=== PATIENT | male | born 1955 | race Caucasian/White ===

== ENCOUNTER 2020-07-16 17:09 | Emergency (ER) | payer OTHER ==
[~2020-07-16] VITALS: Ht 190.5 cm; Wt 125.3 kg
--- NOTE | 2020-07-16 17:19 | NUR ---
PATIENT WALKED BACK FROM TRIAGE WITH CHIEF C/O LEFT LEG PAIN. PATIENT STATES HE FELL ABOUT "7 WEEKS AGO." PATIENT STARTED HAVING PAIN IN HIS LEFT LEG A WEEK LATER, WITH MOST OF THE PAIN FOCUSED IN THE FRONT OF THE LEG. PATIENT HAS BEEN PRESCRIBED STEROIDS BY PCP, PATIENT STATES PAIN WAS RELIEVED BY STEROIDS BY BLOOD SUGAR LEVELS "DOUBLED." PATIENT STOPPED STEROIDS DUE TO INCREASE IN BLOOD SUGAR. PATIENT RECENTLY AT URGENT CARE AND X-RAYS SHOWED NO BROKEN BONES. NADN. DENISE AT BEDSIDE FOR EVALUATION.
[2020-07-16 17:56] LABS: BASOPHILS % (AUTO) 1 % (0-1); EOSINOPHILS % (AUTO) 2 % (1-7); LYMPHOCYTES % (AUTO) 16 % (22-44); MEAN CORPUSCULAR HEMOGLOBIN 30.6 pg (27.5-34.5); MEAN CORPUSCULAR HGB CONC 34.7 g/dL (33.2-36.2); MONOCYTES % (AUTO) 10 % (2-9); NEUTROPHILS % (AUTO) 71 % (42-75); PLATELET COUNT 159 x10^3/uL (130-400); RED BLOOD COUNT 4.79 x10^6/uL (4.38-5.82); RED CELL DISTRIBUTION WIDTH 14.2 % (9.4-14.8)
[2020-07-16 17:57] LABS: MD NO
[2020-07-16 18:08] LABS: ALBUMIN 3.6 g/dL (3.4-5.0); ANION GAP 6 mmol/L (5-15); CALCIUM 9.3 mg/dL (8.5-10.1); CHLORIDE 108 mmol/L (98-107)
--- NOTE | 2020-07-16 18:08 | NUR ---
PATIENT TO IMAGING.
[2020-07-16 18:16] LABS: CREATININE 1.63 mg/dL (0.7-1.3)
--- NOTE | 2020-07-16 18:32 | NUR ---
PATIENT BACK FROM IMAGING, RESTING IN GURNEY, NADN, VSS, SIDE RAILS UP X2, CALL LIGHT WITHIN REACH.
[2020-07-16 19:00] LABS: INTERNATIONAL NORMALIZED RATIO 1.04 (0.93-1.1)
--- NOTE | 2020-07-16 19:09 | NUR ---
PATIENT RESTING IN [facility] WATCHING TV, REQUESTING THIS RN CHECK BLOOD SUGAR, PATIENT STATES "I FEEL LIKE IT'S GETTING LOW." CHECKED PATIENT'S BLOOD SUGAR, IT IS 249. FABIAN GRANADOS, CALL LIGHT WITHIN REACH.
[2020-07-16] MEDS ORDERED: RIVAROXABAN 20 MG TABLET ONE (19:18)
[2020-07-16 19:21] VITALS: BP 142/63
[2020-07-16] MEDS ORDERED: RIVAROXABAN 20 MG TABLET PO ONE (19:30)
--- NOTE | 2020-07-16 19:45 | NUR ---
Patient given discharge instructions and prescription and they have confirmed that they understand the instructions. Patient stable and ambulatory with steady gait and use of cane. All patient belongings gathered and taken with patient.
== END 2020-07-16 19:57 | disposition home or self-care (01) ==
LOC: ED 19:53
DX: I82.432 Acute embolism and thrombosis of left popliteal vein (principal); I82.442 Acute embolism and thrombosis of left tibial vein; N28.9 Disorder of kidney and ureter, unspecified; G89.11 Acute pain due to trauma; E11.9 Type 2 diabetes mellitus without complications
CPT/HCPCS: 36415; 72190; 80048; 82040; 82962; 85025; 85610; 86140; 99285

== ENCOUNTER → 2020-07-26 | Outpatient (CLI) | payer OTHER | END | disposition home or self-care (01) | LOC: RAD 17:28 | PROVIDERS: ATTEND Nurse Practitioner Family | DX: M79.605 Pain in left leg (principal) ==

== ENCOUNTER 2020-07-28 10:17 | Emergency (ER) | payer OTHER ==
[~2020-07-28] VITALS: Ht 190.5 cm; Wt 131.8 kg
[2020-07-28 10:27] VITALS: BP 120/58
== END 2020-07-28 12:32 | disposition home or self-care (01) ==
LOC: ED 10:40
DX: S90.32XA Contusion of left foot, initial encounter (principal); M25.572 Pain in left ankle and joints of left foot; E11.9 Type 2 diabetes mellitus without complications; Z86.718 Personal history of other venous thrombosis and embolism; X58.XXXA Exposure to other specified factors, initial encounter; Y93.89 Activity, other specified; Y92.89 Other specified places as the place of occurrence of the external cause; Y99.8 Other external cause status
CPT/HCPCS: 99284

== ENCOUNTER 2020-07-30 04:18 | Emergency (ER) | payer OTHER ==
[~2020-07-30] VITALS: Ht 190.5 cm; Wt 132.0 kg
--- NOTE | 2020-07-30 04:27 | NUR ---
pt bib remsa to room 18. a&ox4, placed on cr monitor.
[2020-07-30] MEDS ORDERED: GABAPENTIN 300 MG CAPSULE PO ONE (05:00)
[2020-07-30] MEDS ORDERED: HYDROcodone/APAP 5/325 TABLET PO ONE (05:00)
[2020-07-30] MEDS ORDERED: HYDROcodone/APAP 5/325 TABLET ONE (05:01)
[2020-07-30] MEDS ORDERED: GABAPENTIN 300 MG CAPSULE ONE (05:02)
--- NOTE | 2020-07-30 06:03 | NUR ---
Patient resting on stretcher, assisted with urinal voided 250ml clear osman urine, call atkinson within reach, vss, nad will continue to monitor.
[2020-07-30 07:14] VITALS: BP 140/73
== END 2020-07-30 07:17 | disposition home or self-care (01) ==
LOC: ED 05:29
DX: G89.29 Other chronic pain (principal); M25.571 Pain in right ankle and joints of right foot; M25.572 Pain in left ankle and joints of left foot; E11.40 Type 2 diabetes mellitus with diabetic neuropathy, unspecified; Z86.718 Personal history of other venous thrombosis and embolism
CPT/HCPCS: 99283

== ENCOUNTER → 2020-08-31 | Outpatient (CLI) | payer OTHER | END | disposition home or self-care (01) | LOC: RAD 09:51 | PROVIDERS: ATTEND Student in an Organized Health Care Education/Training Program | DX: M16.0 Bilateral primary osteoarthritis of hip (principal); M51.36 Other intervertebral disc degeneration, lumbar region | CPT/HCPCS: 72192 ==

== ENCOUNTER 2020-09-14 14:14 | Outpatient (CLI) | payer OTHER ==
[2020-09-14] MEDS ORDERED: LIDOCAINE 1%, 10ML ONE ×2 (14:56)
== END 2020-09-14 23:59 | disposition home or self-care (01) ==
LOC: RAD 14:14
PROVIDERS: ATTEND Student in an Organized Health Care Education/Training Program
DX: M16.12 Unilateral primary osteoarthritis, left hip (principal); I10 Essential (primary) hypertension; E66.9 Obesity, unspecified; Z68.36 Body mass index [BMI] 36.0-36.9, adult; Z79.4 Long term (current) use of insulin; Z79.01 Long term (current) use of anticoagulants; Z79.890 Hormone replacement therapy; Z79.899 Other long term (current) drug therapy
CPT/HCPCS: 20610; 77002; 87070; 87205; 89051; 89060; J3490

== ENCOUNTER 2020-10-11 01:57 | Inpatient (IN) | payer OTHER, MEDICARE ==
[~2020-10-11] VITALS: Ht 190.5 cm; Wt 115.4 kg
[2020-10-11] MEDS ORDERED: SODIUM CHLORIDE 0.9% 1,000ML IVBOLUS ONE (02:30)
[2020-10-11] MEDS ORDERED: SODIUM CHLORIDE FLUSH 10ML SYR IVF ONE (02:30)
--- NOTE | 2020-10-11 02:30 | NUR ---
REPORT TO UZAIR HO
--- NOTE | 2020-10-11 02:38 | NUR ---
THIS IS A 65M BIB EMS AFTER MULTIPLE SYNCOPAL EPISODES. PT STS HE GETS ALL ANXIOUS AND BLACKS OUT. PER REPORT PT HAD A WITNESSED SYNCOPAL EPISODE WITH EMS. PT HAS HX OF DVT AND WAS TAKING ELIQUIS UNTIL A WEEK AGO WHEN A DOCTOR TOLD HIM THE CLOT IS GONE AND HE COULD STOP TAKING IT. PT CONNECTED TO ALL MONITORING, BILAT PIVS STARTED, AT BEDSIDE.
--- NOTE | 2020-10-11 02:40 | NUR ---
FLUIDS HUNG PER DR BANG AT THIS TIME, LAB AT BEDSIDE FOR DRAW PT TOLERATING WELL. AT BEDSIDE. PT CONNECTED TO ALL MONITORING.
[2020-10-11 02:46] LABS: BASOPHILS % (AUTO) 0 % (0-1); EOSINOPHILS % (AUTO) 1 % (1-7); LYMPHOCYTES % (AUTO) 9 % (22-44); MEAN CORPUSCULAR HEMOGLOBIN 29.4 pg (27.5-34.5); MEAN CORPUSCULAR HGB CONC 32.9 g/dL (33.2-36.2); MONOCYTES % (AUTO) 6 % (2-9); NEUTROPHILS % (AUTO) 83 % (42-75); PLATELET COUNT 139 x10^3/uL (130-400); RED BLOOD COUNT 4.17 x10^6/uL (4.38-5.82); RED CELL DISTRIBUTION WIDTH 16.1 % (9.4-14.8)
[2020-10-11 02:47] LABS: MD NO
[2020-10-11 02:58] LABS: ALANINE AMINOTRANSFERASE 49 U/L (12-78); ALBUMIN 3.2 g/dL (3.4-5.0); ANION GAP 13 mmol/L (5-15); CALCIUM 8.8 mg/dL (8.5-10.1); CHLORIDE 111 mmol/L (98-107); CREATININE 1.67 mg/dL (0.7-1.3)
[2020-10-11 02:59] LABS: INTERNATIONAL NORMALIZED RATIO 1.16 (0.93-1.1); PROTHROMBIN TIME 12.4 Seconds (9.6-11.5)
[2020-10-11 03:08] LABS: ALKALINE PHOSPHATASE 135 U/L (45-117); BILIRUBIN,TOTAL 0.5 mg/dL (0.2-1.0); T4 (THYROXINE) 7.5 mcg/dL (4.5-12.1); TOTAL PROTEIN 6.7 g/dL (6.4-8.2)
--- NOTE | 2020-10-11 03:10 | NUR ---
PT MOVED TO WEIGHTED GURNEY FOR ACCURATE WEIGHT AT THIS TIME. REPOSITIONED TO COMFORT.
[2020-10-11 03:21] LABS: TROPONIN I 0.387 ng/mL (0.000-0.045)
--- NOTE | 2020-10-11 03:30 | NUR ---
PT TO CT AT THIS TIME
[2020-10-11] MEDS ORDERED: HEPARIN 25,000 UNITS/250ML PMX 250 ML IV PRN (04:00)
[2020-10-11] MEDS ORDERED: HEPARIN 5,000 UNITS/ML, 1ML IV ONE (04:00)
[2020-10-11] MEDS ORDERED: ASPIRIN 81 MG TABLET CHEW PO ONE (04:00)
--- NOTE | 2020-10-11 04:01 | NUR ---
HEPARIN DOSE VERIFIED WITH MARK FROM PHARM. PER MARK BOLUS TO BE GIVEN 4,000 UNITS AND INITIAL START RATE OF 1,000UNITS/HR.
[2020-10-11] MEDS ORDERED: HEPARIN 25,000 UNITS/250ML PMX 250 ML ONE (04:07)
[2020-10-11] MEDS ORDERED: HEPARIN 5,000 UNITS/ML, 1ML ONE (04:07)
[2020-10-11] MEDS ORDERED: ASPIRIN 81 MG TABLET CHEW ONE (04:07)
--- NOTE | 2020-10-11 04:21 | NUR ---
HEPARIN STARTED AND VERIFIED WITH SHAWANDA HO.
[2020-10-11] MEDS ORDERED: ALTEPLASE 10 MG in SODIUM CHLORIDE 0.9% 240 ML IV ONE (04:30)
--- NOTE | 2020-10-11 04:32 | NUR ---
DR. MCALLISTER AT BEDSIDE FOR ADMIT AT THIS TIME.
--- NOTE | 2020-10-11 04:39 | NUR ---
PER DR BANG TPA NOT TO BE GIVEN IN ED, CARDIOLOGY WILL GIVE TPA ONCE PT IS UPSTAIRS.
[2020-10-11] MEDS ORDERED: DEXTROSE 4 GM TAB.CHEW PO PRN (05:00)
[2020-10-11] MEDS ORDERED: GLUCAGON 1 MG IM PRN (05:00)
[2020-10-11] MEDS ORDERED: DEXTROSE 50%, 50ML SYRINGE IVPush PRN (05:00)
[2020-10-11] MEDS ORDERED: OMNIPAQUE 350 MG/ML, 100ML BOTTLE ONE (05:08)
--- NOTE | 2020-10-11 05:20 | NUR ---
REPORT CALLED TO SHAHEEN, ALL QUESTIONS ADDRESSED PT READY FOR TRANSFER TO [facility]
[2020-10-11 06:08] VITALS: BP 86/62
[2020-10-11] MEDS: INSULIN LISPRO 100 UNITS/ML, PEN SQ-INSULIN SCH ×4 (07:00→22:26)
[2020-10-11] MEDS ORDERED: FENTANYL PF 100 MCG/2ML ONE ×2 (07:10→07:35)
[2020-10-11] MEDS ORDERED: MIDAZOLAM 1 MG/ML, 2ML ONE ×2 (07:10→07:35)
[2020-10-11] MEDS ORDERED: LIDOCAINE 2%, 20ML ONE (07:26)
[2020-10-11] MEDS ORDERED: DIPHENHYDRAMINE 50 MG/ML, 1ML ONE (07:35)
[2020-10-11] MEDS ORDERED: SODIUM CHLORIDE 0.9% 1,000 ML IV SCH (08:00)
[2020-10-11] MEDS ORDERED: Heparin 1000 units/500 ml 500 ML IV SCH (08:00)
[2020-10-11] MEDS ORDERED: SODIUM CHLORIDE FLUSH 3ML SYRINGE IVF PRN (08:00)
[2020-10-11] MEDS: SODIUM CHLORIDE FLUSH 10ML SYR IVF SCH ×2 (13:12→21:00)
[2020-10-11] MEDS: RIVAROXABAN 15 MG TABLET PO SCH ×2 (13:33→21:11)
[2020-10-11 14:33] LABS: BASOPHILS % (AUTO) 1 % (0-1); EOSINOPHILS % (AUTO) 1 % (1-7); LYMPHOCYTES % (AUTO) 15 % (22-44); MEAN CORPUSCULAR HEMOGLOBIN 29.6 pg (27.5-34.5); MEAN CORPUSCULAR HGB CONC 33.1 g/dL (33.2-36.2); MEAN PLATELET VOLUME 8.8 fL (7.4-10.4); MONOCYTES % (AUTO) 10 % (2-9); NEUTROPHILS % (AUTO) 75 % (42-75); PLATELET COUNT 116 x10^3/uL (130-400); RED BLOOD COUNT 3.81 x10^6/uL (4.38-5.82); RED CELL DISTRIBUTION WIDTH 16.2 % (9.4-14.8)
[2020-10-11 14:35] LABS: MD NO
[2020-10-11 14:39] LABS: FIBRINOGEN 286 mg/dL (200-340)
[2020-10-11] MEDS ORDERED: HYDROcodone/APAP 5/325 TABLET PO PRN (18:30)
[2020-10-11] MEDS: ACETAMINOPHEN 325 MG TABLET PO PRN (21:11)
[2020-10-11 21:17] LABS: BASOPHILS % (AUTO) 1 % (0-1); EOSINOPHILS % (AUTO) 1 % (1-7); LYMPHOCYTES % (AUTO) 14 % (22-44); MEAN CORPUSCULAR HEMOGLOBIN 29.8 pg (27.5-34.5); MEAN CORPUSCULAR HGB CONC 33.8 g/dL (33.2-36.2); MEAN PLATELET VOLUME 9.5 fL (7.4-10.4); MONOCYTES % (AUTO) 8 % (2-9); NEUTROPHILS % (AUTO) 77 % (42-75); PLATELET COUNT 117 x10^3/uL (130-400); RED BLOOD COUNT 3.79 x10^6/uL (4.38-5.82)
[2020-10-11 21:18] LABS: MD NO
[2020-10-11] MEDS ORDERED: INSU100V8 SQ (23:00)
[2020-10-11] MEDS ORDERED: LISI1TAB39 PO (23:00)
[2020-10-11] MEDS ORDERED: ATOR-2 PO (23:00)
[2020-10-11] MEDS ORDERED: RIVA20TA PO (23:00)
[2020-10-11] MEDS ORDERED: LEVO75TA5 PO (23:00)
[2020-10-11] MEDS ORDERED: INSU100V5 SQ-INSULIN (23:00)
[2020-10-11] MEDS ORDERED: GABA300C PO (23:00)
[2020-10-11] MEDS ORDERED: TADALAFIL (23:00)
[2020-10-11] MEDS ORDERED: INSU100V11 SQ (23:00)
[2020-10-11] MEDS ORDERED: IBUP-1223 PO (23:00)
[2020-10-12 02:43] LABS: BASOPHILS % (AUTO) 1 % (0-1); EOSINOPHILS % (AUTO) 2 % (1-7); LYMPHOCYTES % (AUTO) 18 % (22-44); MEAN CORPUSCULAR HEMOGLOBIN 29.8 pg (27.5-34.5); MEAN CORPUSCULAR HGB CONC 33.7 g/dL (33.2-36.2); MEAN PLATELET VOLUME 9.2 fL (7.4-10.4); MONOCYTES % (AUTO) 8 % (2-9); NEUTROPHILS % (AUTO) 71 % (42-75); PLATELET COUNT 100 x10^3/uL (130-400); RED BLOOD COUNT 3.83 x10^6/uL (4.38-5.82); RED CELL DISTRIBUTION WIDTH 16.2 % (9.4-14.8)
[2020-10-12 02:44] LABS: MD NO
[2020-10-12 02:48] LABS: ANION GAP 7 mmol/L (5-15); CALCIUM 8.7 mg/dL (8.5-10.1); CHLORIDE 114 mmol/L (98-107); CREATININE 1.03 mg/dL (0.7-1.3)
[2020-10-12 02:52] LABS: FIBRINOGEN 387 mg/dL (200-340)
[2020-10-12] MEDS: ACETAMINOPHEN 325 MG TABLET PO PRN ×2 (03:17→08:54)
[2020-10-12] MEDS: RIVAROXABAN 15 MG TABLET PO SCH (08:54)
[2020-10-12] MEDS: INSULIN LISPRO 100 UNITS/ML, PEN SQ-INSULIN SCH ×3 (08:54→16:18)
[2020-10-12] MEDS: SODIUM CHLORIDE FLUSH 10ML SYR IVF SCH (08:55)
[2020-10-12] MEDS ORDERED: RIVA15TA PO (14:44)
[2020-10-12] MEDS ORDERED: RIVA20TA PO (14:44)
[2020-11-01] MEDS ORDERED: RIVAROXABAN 20 MG TABLET PO SCH (09:00)
== END 2020-10-12 16:43 | disposition home or self-care (01) | DRG 175 ==
LOC: ED 05:06 → EDIP 05:08 → CCU 05:31 → DCLOUNGE 10-12 16:19
PROVIDERS: ADMIT Internal Medicine; ATTEND Internal Medicine
PROC: 02HR33Z Insertion of Infusion Device into Left Pulmonary Artery, Percutaneous Approach (ICD-10-PCS; principal; 2020-10-11)
PROC: 02HQ33Z Insertion of Infusion Device into Right Pulmonary Artery, Percutaneous Approach (ICD-10-PCS; 2020-10-11)
PROC: 3E06317 Introduction of Other Thrombolytic into Central Artery, Percutaneous Approach (ICD-10-PCS; 2020-10-11)
DX: I26.09 Other pulmonary embolism with acute cor pulmonale (principal); J96.01 Acute respiratory failure with hypoxia; R57.0 Cardiogenic shock; D68.69 Other thrombophilia; I82.492 Acute embolism and thrombosis of other specified deep vein of left lower extremity; Z20.822 Contact with and (suspected) exposure to COVID-19; D63.8 Anemia in other chronic diseases classified elsewhere; E03.9 Hypothyroidism, unspecified; Z96.649 Presence of unspecified artificial hip joint; G90.8 Other disorders of autonomic nervous system; E11.9 Type 2 diabetes mellitus without complications; E78.5 Hyperlipidemia, unspecified; I10 Essential (primary) hypertension; I25.10 Atherosclerotic heart disease of native coronary artery without angina pectoris; I27.20 Pulmonary hypertension, unspecified; M16.10 Unilateral primary osteoarthritis, unspecified hip; S80.211A Abrasion, right knee, initial encounter; Z79.4 Long term (current) use of insulin; Z86.718 Personal history of other venous thrombosis and embolism; Z79.899 Other long term (current) drug therapy
CPT/HCPCS: 36415; 37211; 96360; 96361; 99285; C8929; J3490; 70450; 71275; 80048; 80053; 82962; 83036; 83880; 84436; 84443; 84484; 85025; 85384; 85520; 85610; 85730; 87081; 87635; 93005; 93970; 99156; C1769; C1894; G0378; J1644; J2250; J2997; J3010; Q9957; Q9967; J1200; J1815; J7030; J7050

== ENCOUNTER 2020-10-21 14:34 | Inpatient (IN) | payer OTHER, MEDICARE ==
[~2020-10-21] VITALS: Ht 190.5 cm; Wt 116.0 kg
[~2020-10-21 14:34] MED LIST: ATOR-2 PO; GABA300C PO; IBUP-1223 PO; INSU100V11 SQ; INSU100V5 SQ-INSULIN; INSU100V8 SQ; LEVO75TA5 PO; LISI1TAB39 PO; RIVA15TA PO; RIVA20TA PO; TADALAFIL
--- NOTE | 2020-10-21 14:50 | NUR ---
PT BIB EMS FOR INTERMITTANT SOB. THE SOB WORSENS WHEN USING THE WALKER. [facility]S [facility] DVT'S. PT HAS BEEN ON XARELTO SINCE RELEASE FROM HOSPITAL.
--- NOTE | 2020-10-21 14:50 | NUR ---
PT DENIES CP, N/V, OR GI SYMPTOMS.
--- NOTE | 2020-10-21 14:53 | NUR ---
PT PIV BY EMS [employer] 18 GA RFA AND 300 ML/NS
[2020-10-21 15:54] LABS: BASOPHILS % (AUTO) 1 % (0-1); EOSINOPHILS % (AUTO) 1 % (1-7); LYMPHOCYTES % (AUTO) 11 % (22-44); MEAN CORPUSCULAR HEMOGLOBIN 29.3 pg (27.5-34.5); MEAN CORPUSCULAR HGB CONC 33.4 g/dL (33.2-36.2); MEAN PLATELET VOLUME 9.5 fL (7.4-10.4); MONOCYTES % (AUTO) 9 % (2-9); NEUTROPHILS % (AUTO) 79 % (42-75); PLATELET COUNT 187 x10^3/uL (130-400); RED BLOOD COUNT 4.04 x10^6/uL (4.38-5.82); RED CELL DISTRIBUTION WIDTH 16.3 % (9.4-14.8)
[2020-10-21] MEDS ORDERED: SODIUM CHLORIDE FLUSH 10ML SYR IVF ONE (16:00)
[2020-10-21 16:05] LABS: ALANINE AMINOTRANSFERASE 30 U/L (12-78); ALBUMIN 3.3 g/dL (3.4-5.0); ANION GAP 9 mmol/L (5-15); CALCIUM 9.4 mg/dL (8.5-10.1); CHLORIDE 108 mmol/L (98-107); CREATININE 2.19 mg/dL (0.7-1.3)
[2020-10-21 16:10] LABS: ALKALINE PHOSPHATASE 112 U/L (45-117); TOTAL PROTEIN 6.6 g/dL (6.4-8.2); TROPONIN I 0.021 ng/mL (0.000-0.045)
[2020-10-21 16:22] LABS: INTERNATIONAL NORMALIZED RATIO 1.48 (0.93-1.1)
[2020-10-21 16:41] LABS: PROTHROMBIN TIME 15.7 Seconds (9.6-11.5)
[2020-10-21] MEDS ORDERED: SODIUM CHLORIDE 0.9% 1,000ML IVBOLUS ONE (17:30)
[2020-10-21] MEDS ORDERED: POLYETHYLENE GLYCOL 17 GM PACKET PO PRN (18:30)
[2020-10-21] MEDS ORDERED: ONDANSETRON ODT 4 MG PO PRN (18:30)
[2020-10-21] MEDS ORDERED: BISACODYL 10 MG SUPP PR PRN (18:30)
--- NOTE | 2020-10-21 18:32 | NUR ---
PT REPORT TO Nikolai PARTIDA RN
[2020-10-21 19:00] VITALS: BP 103/66
[2020-10-21] MEDS ORDERED: LEVO100T5 PO (19:55)
[2020-10-21 20:54] LABS: CHLORIDE,URINE RANDOM 97 mmol/L; POTASSIUM,URINE RANDOM 57 mmol/L; SODIUM,URINE RANDOM 81 mmol/L
[2020-10-21 20:55] LABS: MICROSCOPIC NOT IND
[2020-10-21] MEDS: GABAPENTIN 300 MG CAPSULE PO SCH (21:00)
[2020-10-21] MEDS: ATORVASTATIN 80 MG TABLET PO SCH (21:50)
[2020-10-21] MEDS: RIVAROXABAN 15 MG TABLET PO SCH (21:50)
[2020-10-21] MEDS: INSULIN LISPRO 100 UNITS/ML, PEN SQ-INSULIN SCH (21:58)
[2020-10-21] MEDS: SODIUM CHLORIDE 0.9% 1,000 ML IV SCH (21:58)
[2020-10-21 22:13] LABS: TROPONIN I 0.022 ng/mL (0.000-0.045)
[2020-10-22 00:03] VITALS: BP 103/66
[2020-10-22 01:39] VITALS: BP 124/69
[2020-10-22 04:42] LABS: BASOPHILS % (AUTO) 1 % (0-1); EOSINOPHILS % (AUTO) 1 % (1-7); LYMPHOCYTES % (AUTO) 22 % (22-44); MEAN CORPUSCULAR HEMOGLOBIN 29.5 pg (27.5-34.5); MEAN CORPUSCULAR HGB CONC 33.6 g/dL (33.2-36.2); MEAN PLATELET VOLUME 9.8 fL (7.4-10.4); MONOCYTES % (AUTO) 9 % (2-9); NEUTROPHILS % (AUTO) 67 % (42-75); PLATELET COUNT 197 x10^3/uL (130-400); RED BLOOD COUNT 4.18 x10^6/uL (4.38-5.82); RED CELL DISTRIBUTION WIDTH 16.3 % (9.4-14.8)
[2020-10-22 04:57] LABS: ANION GAP 8 mmol/L (5-15); CALCIUM 9.3 mg/dL (8.5-10.1); CHLORIDE 107 mmol/L (98-107)
[2020-10-22 05:02] LABS: TROPONIN I 0.025 ng/mL (0.000-0.045)
[2020-10-22] MEDS: LEVOTHYROXINE 100 MCG TABLET PO SCH (05:12)
[2020-10-22] MEDS: SODIUM CHLORIDE 0.9% 1,000 ML IV SCH ×3 (05:13→17:14)
[2020-10-22] MEDS ORDERED: LEVOTHYROXINE 75 MCG TABLET PO SCH (06:00)
[2020-10-22 06:54] VITALS: BP 123/65
[2020-10-22] MEDS: SENNA/DOCUSATE TABLET PO SCH (08:33)
[2020-10-22] MEDS: RIVAROXABAN 15 MG TABLET PO SCH ×2 (08:33→21:02)
[2020-10-22] MEDS: GABAPENTIN 300 MG CAPSULE PO SCH ×3 (08:35→21:00)
[2020-10-22] MEDS: INSULIN GLARGINE 100 UNITS/ML, PEN SQ-INSULIN SCH (09:00)
[2020-10-22] MEDS: INSULIN LISPRO 100 UNITS/ML, PEN SQ-INSULIN SCH ×4 (09:00→21:30)
[2020-10-22 12:01] VITALS: BP 122/79
[2020-10-22 18:47] VITALS: BP 111/66
[2020-10-22] MEDS: ATORVASTATIN 80 MG TABLET PO SCH (21:02)
[2020-10-23] MEDS: SODIUM CHLORIDE 0.9% 1,000 ML IV SCH ×2 (00:12→08:11)
[2020-10-23 00:30] VITALS: BP 147/69
[2020-10-23] MEDS: ACETAMINOPHEN 325 MG TABLET PO PRN ×2 (02:03→06:04)
[2020-10-23 05:51] LABS: BASOPHILS % (AUTO) 1 % (0-1); EOSINOPHILS % (AUTO) 1 % (1-7); LYMPHOCYTES % (AUTO) 17 % (22-44); MEAN CORPUSCULAR HEMOGLOBIN 29.8 pg (27.5-34.5); MEAN CORPUSCULAR HGB CONC 33.9 g/dL (33.2-36.2); MEAN PLATELET VOLUME 9.7 fL (7.4-10.4); MONOCYTES % (AUTO) 9 % (2-9); NEUTROPHILS % (AUTO) 72 % (42-75); PLATELET COUNT 152 x10^3/uL (130-400); RED BLOOD COUNT 3.67 x10^6/uL (4.38-5.82); RED CELL DISTRIBUTION WIDTH 16.2 % (9.4-14.8)
[2020-10-23 05:58] LABS: ALBUMIN 3.2 g/dL (3.4-5.0); ANION GAP 6 mmol/L (5-15); CALCIUM 8.8 mg/dL (8.5-10.1); CHLORIDE 113 mmol/L (98-107); CREATININE 0.94 mg/dL (0.7-1.3)
[2020-10-23] MEDS: LEVOTHYROXINE 100 MCG TABLET PO SCH (06:04)
[2020-10-23] MEDS: INSULIN LISPRO 100 UNITS/ML, PEN SQ-INSULIN SCH ×2 (07:00→12:36)
[2020-10-23 07:21] VITALS: BP 153/76
[2020-10-23] MEDS ORDERED: POTASSIUM CHLORIDE 20 MEQ TAB.ER.PRT PO ONE (07:30)
[2020-10-23] MEDS: GABAPENTIN 300 MG CAPSULE PO SCH ×2 (08:11→08:17)
[2020-10-23] MEDS: RIVAROXABAN 15 MG TABLET PO SCH (08:11)
[2020-10-23] MEDS: SENNA/DOCUSATE TABLET PO SCH (08:12)
[2020-10-23] MEDS: INSULIN GLARGINE 100 UNITS/ML, PEN SQ-INSULIN SCH (12:37)
[2020-10-23 13:35] VITALS: BP 152/69
[2020-10-31] MEDS ORDERED: RIVAROXABAN 20 MG TABLET PO SCH (17:00)
== END 2020-10-23 14:39 | disposition home or self-care (01) | DRG 175 ==
LOC: ED 17:15 → EDIP 17:21 → ED 17:26 → 5SO 18:50
PROVIDERS: ADMIT Family Medicine; ATTEND Family Medicine
DX: I26.99 Other pulmonary embolism without acute cor pulmonale (principal); N17.0 Acute kidney failure with tubular necrosis; I82.402 Acute embolism and thrombosis of unspecified deep veins of left lower extremity; D64.9 Anemia, unspecified; E03.9 Hypothyroidism, unspecified; E11.42 Type 2 diabetes mellitus with diabetic polyneuropathy; E66.9 Obesity, unspecified; Z68.32 Body mass index [BMI] 32.0-32.9, adult; E78.5 Hyperlipidemia, unspecified; I10 Essential (primary) hypertension; Z79.01 Long term (current) use of anticoagulants; Z79.4 Long term (current) use of insulin; Z82.61 Family history of arthritis; Z83.3 Family history of diabetes mellitus
CPT/HCPCS: 36415; 71045; 80048; 80053; 80069; 81003; 82436; 82570; 82962; 83880; 84133; 84300; 84484; 85025; 85610; 85730; 93005; 99285; G0378; J1815; J7030

== ENCOUNTER 2020-11-22 03:30 | Emergency (ER) | payer OTHER ==
[~2020-11-22] VITALS: Ht 190.5 cm; Wt 104.6 kg
[~2020-11-22 03:30] MED LIST changes: +LEVO100T5 PO
[2020-11-22 03:52] LABS: BASOPHILS % (AUTO) 1 % (0-1); EOSINOPHILS % (AUTO) 1 % (1-7); LYMPHOCYTES % (AUTO) 7 % (22-44); MEAN CORPUSCULAR HEMOGLOBIN 29.1 pg (27.5-34.5); MEAN PLATELET VOLUME 9.3 fL (7.4-10.4); MONOCYTES % (AUTO) 6 % (2-9); NEUTROPHILS % (AUTO) 86 % (42-75); PLATELET COUNT 193 x10^3/uL (130-400); RED BLOOD COUNT 4.36 x10^6/uL (4.38-5.82); RED CELL DISTRIBUTION WIDTH 15.1 % (9.4-14.8)
[2020-11-22 03:55] LABS: MD NO
[2020-11-22] MEDS ORDERED: SODIUM CHLORIDE FLUSH 10ML SYR IVF ONE (04:00)
[2020-11-22] MEDS ORDERED: SODIUM CHLORIDE 0.9% 1,000ML IVBOLUS ONE (04:00)
[2020-11-22 04:04] LABS: ALBUMIN 3.3 g/dL (3.4-5.0); ANION GAP 8 mmol/L (5-15); CALCIUM 9.4 mg/dL (8.5-10.1); CHLORIDE 107 mmol/L (98-107)
[2020-11-22 04:08] LABS: INTERNATIONAL NORMALIZED RATIO 1.25 (0.93-1.1); PROTHROMBIN TIME 13.3 Seconds (9.6-11.5)
[2020-11-22 04:10] LABS: ALANINE AMINOTRANSFERASE 32 U/L (12-78); ALKALINE PHOSPHATASE 121 U/L (45-117); BILIRUBIN,TOTAL 0.3 mg/dL (0.2-1.0); CREATININE 1.14 mg/dL (0.7-1.3); TOTAL PROTEIN 7.1 g/dL (6.4-8.2); TROPONIN I < 0.015 ng/mL (0.000-0.045)
[2020-11-22 05:05] VITALS: BP 146/70
[2020-11-22] MEDS ORDERED: OMNIPAQUE 350 MG/ML, 100ML BOTTLE ONE (05:16)
== END 2020-11-22 05:55 | disposition home or self-care (01) ==
LOC: ED 05:26
DX: R07.89 Other chest pain (principal); R00.2 Palpitations; I45.10 Unspecified right bundle-branch block; E11.9 Type 2 diabetes mellitus without complications; I25.2 Old myocardial infarction; Z86.718 Personal history of other venous thrombosis and embolism
CPT/HCPCS: 36415; 71275; 80053; 83880; 84484; 85025; 85610; 85730; 93005; 96360; 99285; J7030; Q9967

== ENCOUNTER 2020-12-09 05:14 | Emergency (ER) | payer OTHER ==
[~2020-12-09] VITALS: Ht 190.5 cm; Wt 110.0 kg
[2020-12-09] MEDS ORDERED: KETOROLAC 30 MG/1 ML IVPush ONE (06:00)
[2020-12-09] MEDS ORDERED: MORPHINE SULFATE 4 MG/ML, 1ML IVPush PRN (06:00)
[2020-12-09] MEDS ORDERED: SODIUM CHLORIDE FLUSH 10ML SYR IVF ONE (06:00)
[2020-12-09] MEDS ORDERED: ONDANSETRON 2MG/ML, 2ML IVPush ONE (06:00)
[2020-12-09 06:25] LABS: BASOPHILS % (AUTO) 1 % (0-1); EOSINOPHILS % (AUTO) 2 % (1-7); LYMPHOCYTES % (AUTO) 18 % (22-44); MEAN CORPUSCULAR HEMOGLOBIN 29.2 pg (27.5-34.5); MEAN CORPUSCULAR HGB CONC 33.5 g/dL (33.2-36.2); MEAN PLATELET VOLUME 10.3 fL (7.4-10.4); MONOCYTES % (AUTO) 8 % (2-9); NEUTROPHILS % (AUTO) 71 % (42-75); PLATELET COUNT 135 x10^3/uL (130-400); RED BLOOD COUNT 4.49 x10^6/uL (4.38-5.82); RED CELL DISTRIBUTION WIDTH 15.5 % (9.4-14.8)
[2020-12-09 06:26] LABS: MD NO
[2020-12-09 06:37] LABS: ALANINE AMINOTRANSFERASE 22 U/L (12-78); ALBUMIN 3.5 g/dL (3.4-5.0); ANION GAP 7 mmol/L (5-15); CALCIUM 9.6 mg/dL (8.5-10.1); CHLORIDE 111 mmol/L (98-107); CREATININE 0.93 mg/dL (0.7-1.3)
[2020-12-09 06:39] LABS: ALKALINE PHOSPHATASE 108 U/L (45-117); BILIRUBIN,TOTAL 0.5 mg/dL (0.2-1.0); TOTAL PROTEIN 6.9 g/dL (6.4-8.2)
[2020-12-09] MEDS ORDERED: KETOROLAC 30 MG/1 ML ONE (06:42)
[2020-12-09] MEDS ORDERED: ONDANSETRON 2MG/ML, 2ML ONE (06:42)
[2020-12-09] MEDS ORDERED: MORPHINE SULFATE 4 MG/ML, 1ML ONE (06:43)
--- NOTE | 2020-12-09 06:57 | NUR ---
PT STATES HAS HAD LEFT HIP ISSUES THAT HAVE BEEN GETTING WORSE SINCE LAST MAY. PAIN IS GETTING WORSE AND WANT MEDICATIONS THAT WORK UNTIL HE HAS SURGERY IN DECEMBER.
--- NOTE | 2020-12-09 06:58 | NUR ---
REPORT GIVEN TO GWEN HO.
--- NOTE | 2020-12-09 07:00 | NUR ---
PT REPORT FROM VIC MALONE
[2020-12-09 07:43] VITALS: BP 119/57
--- NOTE | 2020-12-09 07:49 | NUR ---
PT REC'VD DISCHARGE EDUCATION AND INSTRUCTIONS. PT HAD NO FURTHER QUESTIONS.
--- NOTE | 2020-12-09 08:45 | NUR ---
PT PLACED IN WHEELCHAIR AND TAKEN TO HIS VEHICLE. SPOUSE TO DRIVE PT HOME. Addendum: 12/09/20 at 0849 by KIARA PT PLACED IN WHEELCHAIR AND TAKEN TO HIS VEHICLE @ 0815. SPOUSE TO DRIVE PT HOME.
== END 2020-12-09 08:50 | disposition home or self-care (01) ==
LOC: ED 07:10
DX: M25.552 Pain in left hip (principal); E11.9 Type 2 diabetes mellitus without complications; I25.2 Old myocardial infarction; R94.31 Abnormal electrocardiogram [ECG] [EKG]; Z86.718 Personal history of other venous thrombosis and embolism
CPT/HCPCS: 36415; 80053; 85025; 93005; 96374; 96375; 99284; J1885; J2270; J2405

== ENCOUNTER 2020-12-29 22:42 | Emergency (ER) | payer OTHER ==
[~2020-12-29] VITALS: Ht 190.5 cm; Wt 109.0 kg
--- NOTE | 2020-12-30 01:30 | NUR ---
FELL WHILE TRYING TO GET OUT OF CAR. LEFT HIP IMPACT. DID NOT LOSE CONSCIOUSNESS, DID NOT HIT HEAD. TAKES XERELTO. PAIN AND DIFFICULTY AMBULATING SINCE.
--- NOTE | 2020-12-30 02:14 | NUR ---
PT LAYING IN BED WITH AT BEDSIDE, PT A/OX4, ALL NEEDS IN REACH, CALL LIGHT IN REACH, NAD A TTHIS TIME, PT ONLY WANTED TO GET ADJUSTED IN BED AND THAT WAS HIS ONLY COMPLAINT
[2020-12-30] MEDS ORDERED: HYDROmorphone 1 MG/ML, 1ML INJ IM ONE (03:00)
[2020-12-30] MEDS ORDERED: HYDROmorphone 1 MG/ML, 1ML INJ ONE (03:08)
--- NOTE | 2020-12-30 04:00 | NUR ---
PT ABLE TO AMBULATE TO THE BATHROOM WITH WALKER, PT WAS STEADY AND USED WALKER APPROPRIATELY, PT STATED IM SHOT WAS VERY EFFECTIVE AND WOULD REQUEST HIS PAIN SPECIALIST TO PRESCRIBE SOME IF POSSIBLE
[2020-12-30 04:51] VITALS: BP 125/63
== END 2020-12-30 04:54 | disposition home or self-care (01) ==
LOC: ED 23:45
DX: G89.11 Acute pain due to trauma (principal); M25.552 Pain in left hip; M87.852 Other osteonecrosis, left femur; I10 Essential (primary) hypertension; E11.9 Type 2 diabetes mellitus without complications; I25.2 Old myocardial infarction; Z86.718 Personal history of other venous thrombosis and embolism; W01.0XXA Fall on same level from slipping, tripping and stumbling without subsequent striking against object, initial encounter; Y93.89 Activity, other specified; Y92.009 Unspecified place in unspecified non-institutional (private) residence as the place of occurrence of the external cause; Y99.8 Other external cause status
CPT/HCPCS: 72170; 72192; 73552; 82962; 96372; 99284; J1170

== ENCOUNTER → 2021-01-12 | Outpatient (CLI) | payer OTHER | END | disposition home or self-care (01) | LOC: RAD 09:37 | PROVIDERS: ATTEND Internal Medicine | DX: I82.409 Acute embolism and thrombosis of unspecified deep veins of unspecified lower extremity (principal); I26.09 Other pulmonary embolism with acute cor pulmonale ==

== ENCOUNTER → 2021-01-19 | Outpatient (CLI) | payer OTHER | END | disposition home or self-care (01) | LOC: CVU 13:09 | PROVIDERS: ATTEND Internal Medicine Cardiovascular Disease | DX: I35.8 Other nonrheumatic aortic valve disorders (principal); I82.409 Acute embolism and thrombosis of unspecified deep veins of unspecified lower extremity; I26.09 Other pulmonary embolism with acute cor pulmonale | CPT/HCPCS: 93306; 93356 ==